=== PATIENT | male | born 1995 | race Hispanic/Latino ===

== ENCOUNTER 2017-03-24 02:52 | Emergency (ER) | payer BC ==
[2017-03-24 03:11] VITALS: BP 130/65; PULSE 103; RESP 16; TEMP 98.1; O2SAT 100
--- NOTE | 2017-03-24 03:19 | ED PDOC ---
HPI: Abdomen Time Seen by Provider: 03/24/17 03:02 Chief Complaint (Nursing): Abdominal Pain Chief Complaint (Provider): Abdominal discomfort History Per: Patient History/Exam Limitations: no limitations Onset/Duration Of Symptoms: Hrs (1) Outside of [place] travel?: No Quality Of Discomfort: Gas Associated Symptoms: denies: Fever, Chills, Vomiting, Diarrhea Additional History Per: Patient Additional Complaint(s): The patient is a 21yo male, past medical history of SVT ablation, presents to the ED for evaluation of inguinal hernia. Patient reports he was diagnosed with 1x inguinal hernia but he "feels another" and states they are present bilaterally in his groin region. Additionally states he is concerned because he has not been able to pass gas for the past hour; patient reports some nausea but denies any vomiting, diarrhea, fever, chills. States he had a normal bowel movement earlier today. Patient offers no additional medical complaints. Against Medical Advice - AMA Patient Left Against Medical Advice: The patient declines admission to the hospital and wishes to leave the Emergency Department. This action is against my medical advice. This decision was made with informed refusal. The patient was told that admission to the hospital is necessary. Explanation of the reasons why were discussed. The risks of leaving were explained to the patient and include, but are not limited to, worsening of known or currently unknown conditions, permanent disability and from undiagnosed or untreated conditions. The patient has the capacity to make this informed decision and understands my explanation of the current medical problem and risks of leaving. The patient voluntarily accepts these risks and signed an AMA form documenting our conversation. The patient was given the opportunity to ask questions and reconsider. The patient was encouraged to return to the Emergency Department at any time for further care. Past Medical History Reviewed: Historical Data, Nursing Documentation, Vital Signs Vital Signs: Last Vital Signs Temp 98.1 F 03/24/17 03:01 Pulse 103 H 03/24/17 03:01 Resp 16 03/24/17 03:01 BP 130/65 03/24/17 03:01 Pulse Ox 100 03/24/17 05:28 - Medical History PMH: Asthma - Surgical History Other surgeries: Cardiac ablation - Family History Family History: States: Unknown Family Hx - Allergies Allergies/Adverse Reactions: Allergies Allergy/AdvReac Type Severity Reaction Status Date / Time No Known Allergies Allergy Verified 03/24/17 03:20 Review of Systems ROS Statement: Except As Marked, All Systems Reviewed And Found Negative Constitutional: Negative for: Fever, Chills Gastrointestinal: Positive for: Nausea. Negative for: Vomiting, Diarrhea Genitourinary Male: Positive for: Other (2x hernia) Physical Exam - Reviewed Nursing Documentation Reviewed: Yes Vital Signs Reviewed: Yes - Physical Exam Appears: Positive for: Well, Non-toxic, No Acute Distress Head Exam: Positive for: ATRAUMATIC Skin: Positive for: Normal Color, Warm, DRY Eye Exam: Positive for: Normal appearance Neck: Positive for: Normal, Supple Cardiovascular/Chest: Positive for: Regular Rate, Rhythm Gastrointestinal/Abdominal: Positive for: Normal Exam, Soft. Negative for: Tenderness Male Genital Exam: Positive for: normal genitalia, no hernia, scrotum tenderness (R) (diffuse), scrotum tenderness (L) (diffuse). Negative for: testicular tenderness (R), testicular tenderness (L) Extremity: Negative for: Deformity, Swelling Neurologic/Psych: Positive for: Alert, Oriented - ECG O2 Sat by Pulse Oximetry: 100 (RA) Pulse Ox Interpretation: Normal Medical Decision Making Medical Decision Making: Time: 311 Impression: Testicular, scrotal pain Differential: Small inguinal hernia, varicocele, hydrocele, testicular torsion Plan: * Genital exam with motorcycle technician Femi as student services coordinator * Testicular Ultrasound * Reassess Time: 522 Patient reports his pain has subsided and is requesting to leave. Patient informed he will be signing out AMA and expresses understanding. Advised to return to the ED immediately if symptoms worsen or new symptoms develop. Scribe Attestation: Documented by Reyna Gibbs, acting as a scribe for Han Boudreaux MD. Provider Scribe Attestation: All medical record entries made by the Scribe were at my direction and personally dictated by me. I have reviewed the chart and agree that the record accurately reflects my personal performance of the history, physical exam, medical decision making, and the department course for this patient. I have also personally directed, reviewed, and agree with the discharge instructions and disposition. Disposition - Clinical Impression Clinical Impression: Testicular pain, Hernia, inguinal, Left against medical advice - Patient ED Disposition Is Patient to be Admitted: No Doctor Will See Patient In The: Office Counseled Patient/Family Regarding: Studies Performed, Diagnosis, Need For Followup - Disposition Referrals: Kristine Keene MD [Staff Provider] - Disposition: Against Medical Advice Disposition Time: 05:27 Condition: GOOD Additional Instructions: Return for worsening. Follow up with your PCP in 2-3 days. Instructions: Inguinal Hernia (ED), Testicle Pain (ED), Against Medical Advice (ED)
== END 2017-03-24 05:39 | disposition left against medical advice (07) ==
LOC: H.ER 02:52
DX: K40.90 Unilateral inguinal hernia, without obstruction or gangrene, not specified as recurrent (principal); N50.82 Scrotal pain; J45.909 Unspecified asthma, uncomplicated

== ENCOUNTER 2017-05-25 14:43 | Emergency (ER) | payer BC, OTHER ==
[2017-05-25 14:53] VITALS: BP 109/69; PULSE 84; RESP 16; TEMP 98.1; O2SAT 100
--- NOTE | 2017-05-25 15:35 | ED PDOC ---
HPI: Male Pain Time Seen by Provider: 05/25/17 15:27 Chief Complaint (Nursing): Male Genitourinary History Per: Patient Onset/Duration Of Symptoms: Other (1 week) Current Symptoms Are (Timing): Still Present Severity: Moderate Pain Scale Rating Of: 4 Quality Of Discomfort: Stabbing Associated Symptoms: denies: Fever, Nausea, Vomiting, Urinary Symptoms Additional Complaint(s): Bilat testicular pain R>L x 1 week. No h/o trauma. No urinary sxs. S/p bilat inguinal hernia repair 5 weeks ago, No fever. Past Medical History Vital Signs: Last Vital Signs Temp 98.1 F 05/25/17 14:48 Pulse 84 05/25/17 14:48 Resp 16 05/25/17 14:48 BP 109/69 05/25/17 14:48 Pulse Ox 100 05/25/17 14:48 - Medical History PMH: Asthma - Surgical History Surgical History: Hernia Repair - Family History Family History: States: Unknown Family Hx - Home Medications Home Medications: Ambulatory Orders Medication Instructions Recorded Ciprofloxacin HCl [Cipro] 500 mg PO BID #20 tab 05/25/17 Naproxen [Naprosyn] 500 mg PO Q12H #20 tab 05/25/17 - Allergies Allergies/Adverse Reactions: Allergies Allergy/AdvReac Type Severity Reaction Status Date / Time nut - unspecified Allergy ANAPHYLAXIS Verified 05/25/17 14:47 Review of Systems Constitutional: Negative for: Fever Gastrointestinal: Negative for: Nausea, Vomiting Genitourinary Male: Positive for: Other (Testicular pain). Negative for: Dysuria, Frequency Physical Exam - Physical Exam Appears: Positive for: Non-toxic, No Acute Distress Gastrointestinal/Abdominal: Positive for: Bowel Sounds, Soft. Negative for: Tenderness, Hernia Male Genital Exam: Positive for: normal genitalia. Negative for: hernia mass, inguinal tenderness, scrotum tenderness (R), scrotum tenderness (L), testicular tenderness (R), testicular tenderness (L), urethral discharge - ECG O2 Sat by Pulse Oximetry: 100 Disposition - Clinical Impression Clinical Impression: Epididymitis, Varicocele - Patient ED Disposition Is Patient to be Admitted: No Counseled Patient/Family Regarding: Studies Performed, Diagnosis, Need For Followup, Rx Given - Disposition Referrals: Antelmo Gipson MD [Medical Doctor] - Disposition: Routine/Home Disposition Time: 17:58 Condition: FAIR Prescriptions: Ciprofloxacin HCl [Cipro] 500 mg PO BID #20 tab Naproxen [Naprosyn] 500 mg PO Q12H #20 tab Instructions: Epididymitis (ED), Varicocele (ED) Forms: [employer] [facility] (Eth[place]ian)
--- NOTE | 2017-05-25 18:00 | US ---
HISTORY: Bilateral testicular pain. Relevant surgical history: Bilateral hernia repair approximately 5 weeks ago TECHNIQUE: Realtime sonography through the scrotum with color and doppler flow. COMPARISON: None Available. FINDINGS: RIGHT TESTICLE: Measures 2 x 2.8 x 4.6 cm. Normal echotexture and flow. RIGHT EPIDIDYMIS: Epididymal head measures 0.6 x 0.8 x 1.1 cm. Grossly unremarkable appearance with normal flow. LEFT TESTICLE: Measures 1.9 x 2.7 x 5.0 cm. Normal echotexture and flow. LEFT EPIDIDYMIS: Epididymal head measures 0.9 x 0.8 x 0.9 cm. Incidental finding(s): 4 mm left epididymal cysts. HYDROCELE: None. VARICOCELE: Small unilateral, left varicocele. OTHER FINDINGS: No abnormalities at the site of the prior herniorrhaphy. IMPRESSION: Negative study for epididymitis, orchitis or torsion. Additional benign and/or incidental findings described above.
== END 2017-05-25 18:30 | disposition home or self-care (01) ==
LOC: H.ER 14:43
DX: N45.1 Epididymitis (principal); I86.1 Scrotal varices; J45.909 Unspecified asthma, uncomplicated

== ENCOUNTER 2017-10-19 16:28 | Emergency (ER) | payer BC, OTHER ==
[2017-10-19 18:00] VITALS: BP 115/62; PULSE 81; RESP 18; TEMP 98.6; BMI 18.6
[2017-10-19 18:05] VITALS: O2SAT 95
--- NOTE | 2017-10-19 18:26 | ED PDOC ---
HPI: Abdomen Time Seen by Provider: 10/19/17 17:38 Chief Complaint (Nursing): Abdominal Pain Chief Complaint (Provider): Abdominal pain History Per: Patient Additional Complaint(s): 22 yo male, PMH of asthma, presents to ED with c/o abdominal discomfort, diarrhea and tactile fever for 1 week. Pt notes nausea tonight. no episodes of vomiting. No medications taken to alleviate symptoms thus far Past Medical History Reviewed: Nursing Documentation, Vital Signs Vital Signs: Last Vital Signs Temp 98.6 F 10/19/17 18:03 Pulse 81 10/19/17 18:03 Resp 18 10/19/17 18:03 BP 115/62 10/19/17 18:03 Pulse Ox 95 10/19/17 18:26 - Medical History PMH: Asthma - Surgical History Surgical History: Hernia Repair - Family History Family History: States: Unknown Family Hx - Living Arrangements Living Arrangements: With Friends/Others (dorm) - Social History Current smoker - smoking cessation education provided: No Alcohol: None Drugs: Denies - Home Medications Home Medications: Ambulatory Orders Medication Instructions Recorded Ciprofloxacin HCl [Cipro] 500 mg PO BID #20 tab 05/25/17 Naproxen [Naprosyn] 500 mg PO Q12H #20 tab 05/25/17 Dicyclomine [Bentyl] 10 mg PO QID PRN #10 cap 10/19/17 Ondansetron ODT [Zofran ODT] 4 mg PO Q6 PRN #10 odt 10/19/17 - Allergies Allergies/Adverse Reactions: Allergies Allergy/AdvReac Type Severity Reaction Status Date / Time nut - unspecified Allergy ANAPHYLAXIS Verified 10/19/17 18:03 Review of Systems ROS Statement: Except As Marked, All Systems Reviewed And Found Negative Gastrointestinal: Positive for: Nausea, Vomiting, Abdominal Pain Physical Exam - Reviewed Nursing Documentation Reviewed: Yes Vital Signs Reviewed: Yes - Physical Exam Appears: Positive for: Well, Non-toxic, No Acute Distress Head Exam: Positive for: ATRAUMATIC, NORMAL INSPECTION, NORMOCEPHALIC Skin: Positive for: Normal Color, Warm, DRY Eye Exam: Positive for: EOMI, Normal appearance, PERRL ENT: Positive for: Normal ENT Inspection Neck: Positive for: Normal, Painless ROM Cardiovascular/Chest: Positive for: Regular Rate, Rhythm Respiratory: Positive for: CNT, Normal Breath Sounds Gastrointestinal/Abdominal: Positive for: Normal Exam, Bowel Sounds, Soft. Negative for: Tenderness Back: Positive for: Normal Inspection Extremity: Positive for: Normal ROM Neurologic/Psych: Positive for: Alert, Oriented - Laboratory Results Result Diagrams: 10/19/17 18:28 10/19/17 18:28 - ECG O2 Sat by Pulse Oximetry: 95 Medical Decision Making Medical Decision Making: Iv access established and treatment initiated with IVF, Pepcid and Zofran labs resulted and reviewed with Pt who demonstrated full understanding Pt ding well on re-eval. abdomen soft, non tender and non distedned Pt remains aferbile Pt able to tolerate PO without difficulty father at bedside to take Pt home. Disposition - Clinical Impression Clinical Impression: Gastroenteritis, Viral syndrome - Patient ED Disposition Is Patient to be Admitted: No - Disposition Disposition: Routine/Home Disposition Time: 20:00 Condition: STABLE Prescriptions: Dicyclomine [Bentyl] 10 mg PO QID PRN #10 cap PRN Reason: Pain, Mild (1-3) Ondansetron ODT [Zofran ODT] 4 mg PO Q6 PRN #10 odt PRN Reason: Nausea/Vomiting Instructions: Gastroenteritis (ED), Viral Syndrome (ED) Forms: [employer] (Danish)
[2017-10-19 19:03] LABS: BASO % 0.3 % (0.0-2.0); EOS # 0.1 K/uL (0.0-0.7); EOS % 1.1 % (0.0-4.0); HEMOGLOBIN 14.7 g/dL (12.0-18.0); LYMPH # 0.8 K/uL (1.0-4.3); LYMPH % 8.2 % (20.0-40.0); MEAN CELL VOLUME 91.9 fl (80.0-94.0); MEAN CORPUSCULAR HEMOGLOBIN 30.7 pg (27.0-31.0); MEAN CORPUSCULAR HGB CONC 33.4 g/dL (33.0-37.0); MEAN PLATELET VOLUME 7.4 fl (7.2-11.7); MONO # 0.4 K/uL (0.0-0.8); MONO % 4.8 % (0.0-10.0); NEUT % 85.6 % (50.0-75.0); PLATELET COUNT 250 K/uL (130-400); RBC 4.81 Mil/uL (4.40-5.90); RED CELL DISTRIBUTION WIDTH 13.4 % (11.5-14.5); URINE BILIRUBIN NEGATIVE (NEGATIVE); URINE BLOOD NEGATIVE (NEGATIVE); URINE CLARITY CLEAR (Clear); URINE COLOR STRAW (YELLOW); URINE GLUCOSE (UA) NEG (Normal); URINE LEUKOCYTE ESTERASE NEG Leu/uL (Negative); URINE PROTEIN NEGATIVE (NEGATIVE); URINE UROBILINOGEN 0.2-1.0 mg/dL (0.2-1.0); WHITE BLOOD COUNT 9.3 K/uL (4.8-10.8)
[2017-10-19 19:14] LABS: ALB/GLOB RATIO 1.6 (1.0-2.1); ALBUMIN 4.8 g/dL (3.5-5.0); ALT/SGPT 27 U/L (21-72); AMYLASE 90 U/L (30-110); AST/SGOT 32 U/L (17-59); BLOOD UREA NITROGEN 9 mg/dl (9-20); CALCIUM 9.8 mg/dL (8.4-10.2); GFR AFRICAN-AMERICAN > 60; GFR NON-AFRICAN AMERICAN > 60; LIPASE 84 U/L (23-300)
[2017-10-19 20:52] LABS: BANDS 3 % (0-2); EOSINOPHIL 1 % (0-7); LYMPHOCYTE 10 % (20-50); MONOCYTE 4 % (0-10); NEUTROPHIL 82 % (42-75); PLATELET ESTIMATE NORMAL (NORMAL); TOTAL CELLS COUNTED 100
== END 2017-10-19 20:43 | disposition home or self-care (01) ==
LOC: H.ER 16:28
DX: K52.9 Noninfective gastroenteritis and colitis, unspecified (principal); B34.9 Viral infection, unspecified; J45.909 Unspecified asthma, uncomplicated
CPT/HCPCS: 80053; 81003; 82150; 83690; 85025; 96374; 96375; 99283; J2405